=== PATIENT | female | born 1995 | race Two or more races ===

== ENCOUNTER 2022-09-20 11:18 | Outpatient (CLI) | payer OTHER, SELFPAY ==
--- NOTE | 2022-09-20 11:27 | US_ITS ---
STUDY: ULTRASOUND OF THE FEMALE PELVIS - COMPLETE REASON FOR EXAM: Female, 27 years old. Intermittent pelvic pain. IUD placed 3-4 years ago. LMP: Unknown. TECHNIQUE: 3 TECHNICAL QUALITY: Adequate. COMPARISON: None. FINDINGS: The uterus is anteverted and is in a midline position. The uterus measures 6.9 x 4.6 x 4.0 cm. Normal uterine cervix. The endometrium measures 2.7 mm in thickness, and is hyperechoic. There is no demonstrated endometrial mass. There is no demonstrated myometrial mass. I.U.D. -there is a IUD in satisfactory position within the fundal endometrial lumen. The right ovary is visualized. The right ovary measures 4.1 x 2.6 x 2.2 cm. There multiple follicles with a dominant 2.5 x 1.5 x 1.5 cm involuting cyst. There is no visualized right adnexal mass or complex lesion. There is normal arterial and normal venous vascularity. The left ovary is visualized. The left ovary measures 3.7 x 2.2 x 1.9 cm. 3 There is no visualized left adnexal mass or complex lesion. There is normal arterial and normal venous vascularity. There is mild to moderate fluid in the cul-de-sac. The pre void volume of the bladder was 321 ml. The urinary bladder appears grossly normal. Polycystic ovary disease: No. US/Pelvic (Non ) IMPRESSION: 1. Normal uterus with IUD in satisfactory position. 2. Involuting cyst in the right ovary. Left ovary is normal. 3. Mild to moderate free fluid in the pelvis, thought to be physiologic Electronically Signed: Mason Garcia DO at 16:54 EST ,
== END 2022-09-20 23:59 | disposition home or self-care (01) ==
LOC: US 11:24
DX: R10.2 Pelvic and perineal pain (principal)
CPT/HCPCS: 76830; 76856

== ENCOUNTER → 2023-02-22 | Outpatient (CLI) | payer OTHER, SELFPAY ==
[2023-02-22 16:28] LABS: Absolute Neutrophil Count 4.6 X10^3/uL (2.0-7.7); Basophil# 0.04 X10^3/uL; Basophil% 0.5 % (0-1); Eosinophil# 0.03 X10^3/uL; Eosinophils% 0.4 % (0-5); Hematocrit 40.8 % (37-47); Hemoglobin 13.7 g/dL (12.0-15.0); Lymphocyte % 31.1 % (19-41); Mean Corp Hgb Conc 33.6 g/dL (32-36); Mean Corpuscular Hgb 29.2 pg (27.0-32.0); Monocyte# 0.41 X10^3/uL; Monocyte% 5.5 % (0-10); NRBC Flagged by Analyzer 0 % (0-5); Neutrophil % 62.2 % (47-70); Platelet Count 227 K/mm3 (150-450); RBC Distribution Width CV 12.8 % (11.6-14.6); RBC Distribution Width SD 40.6 fl (35.1-43.9); Red Blood Count 4.69 M/mm3 (4.2-5.4); White Blood Count 7.4 K/mm3 (4.4-11.0)
[2023-02-22 17:29] LABS: ALB/GLOB Ratio 1.2 RATIO (0.9-2.4); AST(SGOT) 17 U/L (15-37); Alanine Aminotransfer ALT/SGPT 23 U/L (13-56); Alkaline Phosphatase 56 U/L (45-117); Anion Gap 4 (5-15); BUN 16 mg/dL (7-18); BUN/Creat Ratio 15.8 RATIO (10-20); Chloride 104 mmol/L (98-107); Creatinine, Serum 1.01 mg/dL (0.55-1.02); EST Glomerular Filtration Rate 71 mL/min (>60); Est Glom Filt Rate - Afr Amer 85 mL/min (>60); Ferritin 118 ng/mL (8-252); Globulin 3.4 g/dL (2.2-4.2); Glucose 87 mg/dL (74-106); Iron 66 ug/dL (50-170); Iron Binding Capacity,Total 304 ug/dL (250-450); PERCENT IRON SATURATION 21.7 % (15.0-55.0); Potassium 3.9 mmol/L (3.5-5.1); Protein, Total 7.4 g/dL (6.4-8.2); Sodium Level 135 mmol/L (136-145); T4 Free Direct 1.02 ng/dL (0.76-1.46); Thyroid Stim Hormone (TSH) 1.17 uIU/mL (0.358-3.74)
[2023-02-22 17:56] LABS: Vitamin D,25 Hydroxy 55.6 ng/mL
[2023-02-25 07:08] LABS: Anti-Thyroglobulin AB < 1.0 IU/mL (0.0-0.9); Thyroglobulin, Serum Qt. 9.8 ng/mL (1.5-38.5); Thyroid Peroxidase AB < 9 IU/mL (0-34); Thyroid Stim Immunoglob <0.10 IU/L (0.00-0.55)
== END | disposition home or self-care (01) ==
LOC: MFPLAB 15:03
PROVIDERS: PCP Family Medicine; Visit Provider Family Medicine
DX: E55.9 Vitamin D deficiency, unspecified (principal); E01.1 Iodine-deficiency related multinodular (endemic) goiter; E61.1 Iron deficiency
CPT/HCPCS: 36415; 80053; 82306; 82728; 83540; 83550; 83735; 84432; 84439; 84443; 84445; 85025; 86376; 86800

== ENCOUNTER → 2023-03-06 | Outpatient (CLI) | payer OTHER, SELFPAY ==
--- NOTE | 2023-03-06 16:57 | US_ITS ---
INDICATION: THYROMEGALY EXAMINATION: Ultrasound US Thyroid (eg thyroid, parathyroid, parotid) TECHNIQUE: Domingo scale and color doppler imaging was performed of the thyroid gland. COMPARISON: None. FINDINGS: RIGHT THYROID LOBE: 4.7 x 1.3 x 1.5 cm (4.6 ml). Homogeneous echotexture with normal vascularity. [Multiple small benign colloid cysts in the right inferior thyroid to 2 mm in size. LEFT THYROID LOBE: 4.3 x 1.4 x 1.2 cm (3.7 ml). Homogeneous echotexture with normal vascularity. [Inferior thyroid 0.4 x 0.2 x 0.3 cm completely cystic anechoic wider than tall smoothly marginated cyst with inspissated colloid, TI-RAD 1.. ISTHMUS: 0.3 cm. No thyroid nodules are present. US/Thyroid IMPRESSION: Prominent thyroid with small bilateral colloid cysts Electronically Signed: Tiago Dubon MD at 4:36 EDT ,
== END | disposition home or self-care (01) ==
LOC: US 16:56
PROVIDERS: PCP Family Medicine; Referring Provider Family Medicine; Visit Provider Family Medicine
DX: E01.0 Iodine-deficiency related diffuse (endemic) goiter (principal)
CPT/HCPCS: 76536

== ENCOUNTER 2024-04-15 00:22 | Emergency (ER) | payer OTHER, SELFPAY ==
[2024-04-15 00:22] VITALS: BP 131/87; PULSE 69; RESP 18; TEMP 36.6; O2SAT 98; BMI 30.8
--- NOTE | 2024-04-15 00:31 | CT_ITS ---
EXAM: CT ABDOMEN AND PELVIS WITHOUT INTRAVENOUS CONTRAST CLINICAL INDICATION: abdominal pain TECHNIQUE: Helically acquired images were obtained of the abdomen and pelvis without intravenous contrast. This CT exam was performed using one or more of the following dose reduction techniques: automated exposure control, adjustment of the mA and/or kV according to patient size, and/or use of iterative reconstruction technique. RADIATION DOSE: CTDIvol = 6.95 mGy, DLP = 341.91 mGy-cm COMPARISON: No relevant prior studies available. FINDINGS: LOWER THORAX: Unremarkable. Lung bases are clear. No cardiomegaly. No significant pericardial effusion. ABDOMEN: LIVER: Unremarkable. Homogeneous. GALLBLADDER AND BILE DUCTS: Unremarkable. No calcified gallstones. No gallbladder distention or wall edema. No intra- or extrahepatic biliary ductal dilation. PANCREAS: Unremarkable. No focal cystic mass. SPLEEN: Unremarkable. Normal size without focal cystic or solid mass. ADRENALS: Unremarkable. No nodules. KIDNEYS AND URETERS: No ureteral stone or renal obstruction. Normal renal size and position. STOMACH AND BOWEL: Unremarkable. No stomach or bowel distention. No focal inflammatory change. PELVIS: APPENDIX: The appendix is normal. BLADDER: Mild wall thickening of the bladder with faint adjacent stranding changes. REPRODUCTIVE: Unremarkable as visualized. No mass. ABDOMEN and PELVIS: INTRAPERITONEAL SPACE: Tiny amount of free fluid in the pelvis. No free air. BONES/JOINTS: Unremarkable. No suspicious lytic or blastic abnormality. SOFT TISSUES: Unremarkable. No discrete abdominal or pelvic wall hernia. VASCULATURE: Unremarkable. Abdominal aorta is non-dilated. LYMPH NODES: Unremarkable. No enlarged lymph nodes. CT/Abdomen/Pelvis without Cont IMPRESSION: Mild wall thickening of the bladder with faint adjacent stranding changes. Findings may indicate cystitis. Electronically Signed: Anjel Sommer MD at 1:48 EDT ,
--- NOTE | 2024-04-15 00:31 | ED.VIS.GI ---
HPI HPI - GI History of Present Illness Chief Complaint: Flank Pain Detail of Chief Complaint: Abdominal pain Informant: patient Narrative Narrative: Patient presents with abdominal pain initially started 2 days ago. Patient states that she had some lower abdomen pain that resolved after about 30 minutes. Yesterday throughout the day she had some soreness in her abdomen. This evening more discomfort. She complains of some pain in her mid back. She had nausea and decreased appetite today. She denies fevers. She denies diarrhea. Last bowel movement was about 4 to 5 hours ago. Last menstrual period she thinks was 2 to 3 weeks ago. No prior abdominal surgeries. [facility] Medical History (Updated 04/15/24 @ 02:[address] Vivian Salazar DO) ADHD Hx LEEP (loop electrosurgical excision procedure), cervix, Home Medications ?Medication ?Instructions ?Recorded ?Last Taken ?Type amoxicillin 875 mg tablet 875 mg PO BID #20 tabs 09/17/20 Unknown Rx ascorbate calcium (vitamin C) 500 500 mg PO DAILY 09/17/20 Unknown History mg tablet cholecalciferol (vitamin D3) 125 125 mcg PO DAILY 09/17/20 Unknown History mcg (5,000 unit) capsule fluconazole 150 mg tablet 150 mg PO Q3D 2 doses #2 tabs 09/17/20 Unknown Rx lactobacillus combination no.4 3 3,000 mmu cells PO DAILY 09/17/20 Unknown History billion cell capsule (Probiotic) erythromycin 5 mg/gram (0.5 %) eye 0.5 inch ophthalmic (eye) TID pink 09/24/20 Unknown Rx ointment eye #3.5 grams benzonatate 200 mg capsule 200 mg PO TID PRN cough #20 caps 07/24/23 Unknown Rx methylprednisolone 4 mg tablets in See Rx Instructions PO PER PKG DIR 07/24/23 Unknown Rx a dose pack (Medrol (Jf)) #21 tabs cephalexin 500 mg capsule 500 mg PO Q6 #28 CAPSULES 04/15/24 Unknown Rx Allergy/AdvReac Type Severity Reaction Status Date / Time No Known Allergies Allergy Verified 04/15/24 00:26 Family History Other Adopted Surgical History S/P MCL repair History of repair of ACL Social History Smoking Status: Current every day smoker tobacco type: e-cigarettes alcohol intake: current details: once a week ROS ROS ED Review of Systems ROS Unobtainable: other Constitutional Constitutional ED: Reports lethargy; Denies chills, fever(s), sweats or weight loss Eyes Eyes: Denies blurry vision, change in vision or diplopia ENT ENT ED: Denies rhinorrhea or sore throat Cardiovascular Cardiovascular: Denies chest pain, orthopnea or racing heartbeat Respiratory/Chest Respiratory/Chest: Denies cough, dyspnea, dyspnea on exertion, orthopnea or sputum Gastrointestinal Gastrointestinal: Reports abdominal pain and nausea; Denies diarrhea or vomiting Genitourinary Genitourinary ED: Denies dysuria, hematuria or urinary frequency Musculoskeletal Musculoskeletal: Denies arthralgias, back pain, myalgias or neck pain Integumentary Denies abscess, Abrasions or rash Neurologic Neurologic: Denies headache(s) or weakness Psychiatric Psychiatric: Denies anxiety, depression or suicidal thoughts Endocrine Endocrinology: Denies polydipsia, polyphagia or polyuria Hematologic/Lymphatic Hematologic/Lymphatic: Denies easy bleeding, easy bruising or lymphadenopathy Allergic/Immunologic Allergic/Immunologic ED: Denies mouth swelling, tongue swelling or urticaria EXAM Physical Exam Const Vital Signs: 04/15/24 00:22 04/15/24 01:26 04/15/24 02:02 Temperature 97.8 F 97.1 F L Temperature Source Temporal Temporal Pulse Rate 69 69 69 Respiratory Rate 18 16 16 Blood Pressure 131/87 H 115/65 115/65 Blood Pressure Mean 101 81 81 Pulse Ox 98 99 98 Oxygen Delivery Method Room Air Room Air Room Air Positive well nourished and well developed General Appearance ED: well developed and NAD HEENT Reports TM's clear and moist mucous membranes normocephalic and atraumatic; Negative for trauma or tenderness Tympanic Membrane ED: Yes TM's clear Eyes PERRL and EOMs intact bilaterally General Eye ED: Negative for pale conjunctiva or scleral icterus Neck no lymphadenopathy, supple and no JVD General: Negative for tenderness Chest Wall inspection of chest normal and palpation of chest normal Chest: Negative for tenderness Resp normal respiratory effort and clear to auscultation bilaterally Effort and Inspection: Negative for respiratory distress or pain with movement Auscultation: Negative for rhonchi, wheezes or diminished lung sounds Cardio regular rate, regular rhythm, S1 normal heart sound, S2 normal heart sound and no murmurs Peripheral Pulses: pulses 2+ throughout GI normal to inspection, nondistended, normoactive bowel sounds, soft to palpation, non-tender and no masses GI Narrative: Mild tenderness over the right lower quadrant and suprapubic region as well as the left lower quadrant. There is no rebound, rigidity, or pineal signs. No mass palpated. Back/Spine no CVA tenderness and no thoracic nor lumbar tenderness Extremity normal to inspection General Extremety ED: Negative for edema General Extremity: Negative for edema Neuro oriented x3, CN's II-XII intact bilaterally, no sensory deficits noted and gait normal Sensorium / Orientation: awake, alert, oriented to person, oriented to place and oriented to time Motor Exam: strength 5/5 throughout and strength abnormal Psych mental status grossly normal Skin no rashes or lesions noted and no wounds MDM MDM MDM Narrative Medical decision making narrative: Patient presents with lower abdomen pain and some cloudy urine. She has had nausea and loss of appetite. In the differential would be UTI versus appendicitis versus versus diverticulitis or other acute process. IV line established. CBC with differential white count of 9.9 with hemoglobin 14.5 and platelet count of 232. Chemistries unremarkable. LFTs were normal. Urinalysis was positive for infection. She was started on Rocephin [address] scan of the abdomen pelvis obtained to rule out things such as kidney stone or acute appendicitis. CT showed thickened bladder wall consistent with cystitis otherwise normal appendix and no other acute process. Patient will be discharged home with prescription for Keflex. Advised to follow-up with primary care physician within next 3 to 5 days. Lab Data Labs: Laboratory Results - last 24 hr 04/15/24 00:42 WBC 9.9 RBC 5.00 Hgb 14.5 Hct 43.3 MCV 86.6 MCH 29.0 MCHC 33.5 RDW Std Deviation 39.9 RDW Coeff of Kathi 12.6 Plt Count 232 MPV 9.9 Immature Gran % (Auto) 0.200 Neut % (Auto) 63.7 Lymph % (Auto) 29.7 D[place]y % (Auto) 5.5 Eos % (Auto) 0.4 Baso % (Auto) 0.5 Absolute Neuts (auto) 6.3 Absolute Lymphs (auto) 2.94 Nucleated RBC % 0 Sodium 139 Potassium 3.6 Chloride 106 Carbon Dioxide 28.0 Anion Gap 5 BUN 10 Creatinine 1.08 H Estim Creat Clear Calc 68.51 Est GFR (MDRD) Af Amer 78 Est GFR (MDRD) Non-Af 65 BUN/Creatinine Ratio 9.3 L Glucose 99 Calcium 9.1 Total Bilirubin 0.40 AST 20 ALT 21 Alkaline Phosphatase 64 Total Protein 7.6 Albumin 4.1 Globulin 3.5 Albumin/Globulin Ratio 1.2 Serum , Qual NEGATIVE Urine Color Yellow Urine Clarity Sl. Cloudy Urine pH 7.0 Ur Specific Lueders 1.010 Urine Protein 100 H Urine Glucose (UA) Normal Urine Ketones Negative Urine Occult Blood 250 H Urine Nitrite Negative Urine Bilirubin Negative Urine Urobilinogen Normal Ur Leukocyte Esterase 500 H Urine RBC 10-25 SEEN Urine WBC 50-100 SEEN Ur Squamous Epith Cells 0-5 SEEN Urine Bacteria RARE Urine Mucus 0 SEEN Radiography Diagnostic Testing: Clinical Impression(s) from Imaging Studies Abdomen/Pelvis CT 04/15/24 00:31 IMPRESSION: Mild wall thickening of the bladder with faint adjacent stranding changes. Findings may indicate cystitis. Electronically Signed: Anjel Sommer MD at 1:48 EDT , Discharge Plan Triage Chief Complaint: Flank Pain Other Complaint: Complaint ED Provider: Vivian Salazar Dx/Rx/DC Orders Clinical Impression: UTI (urinary tract infection) Instructions: ED Cystitis Female Adult Prescriptions: New cephalexin 500 mg capsule 500 mg PO Q6 Qty: 28 0RF No Action methylprednisolone [Medrol (Jf)] 4 mg tablets,dose pack See Rx Instructions PO PER PKG DIR Qty: 21 0RF Rx Instructions: PO PER PKG DIR benzonatate 200 mg capsule 200 mg PO TID PRN (Reason: cough) Qty: 20 0RF cholecalciferol (vitamin D3) 125 mcg (5,000 unit) capsule 125 mcg PO DAILY ascorbate calcium (vitamin C) 500 mg tablet 500 mg PO DAILY Probiotic 3 billion cell capsule 3,000 mmu cells PO DAILY Rx Instructions: administer with a meal amoxicillin 875 mg tablet 875 mg PO BID Qty: 20 0RF fluconazole 150 mg tablet 150 mg PO Q3D 0 Days Qty: 2 2RF Rx Instructions: may repeat second dose 72 hrs after first dose if symptoms persist erythromycin 5 mg/gram (0.5 %) ointment 0.5 inch OPHTHALMIC TID Qty: 3.5 0RF Rx Instructions: apply her R eye Primary Care Provider: Clinton Arceo Referrals: Clinton Arceo MD [Primary Care Provider] - 3-5 Days Print Language: Danish Disposition Disposition: Home, Self Care
[2024-04-15] MEDS: 0.9% Normal Saline (1000mL) 1,000 ML 125 ML IV (00:40)
[2024-04-15] MEDS: Ketorolac 15 MG/ML Vial IV (00:41)
[2024-04-15 00:48] LABS: Mucous, Urine 0 SEEN /hpf (<or=2+)
[2024-04-15 00:59] LABS: Color, Urine Yellow (Yellow); Glucose, Dipstick Normal (Normal); Ketone-Dipstick Negative (Negative); Leukocyte Esterase-Dipstick 500 /ul (Negative); Nitrite-Dipstick Negative (Negative); Occult Blood-Urine 250 /ul (Negative); Protein-Dipstick 100 mg/dl (Negative); Urine Bilirubin Dipstick Negative (Negative); Urine Clarity Sl. Cloudy (Clear); Urine Urobilinogen Normal (Normal)
[2024-04-15 01:02] LABS: Internal QC Validated? YES +Cl - CLEAR BKGD; Pregnancy, Serum, hCG Quali. NEGATIVE Negative
[2024-04-15 01:04] LABS: Absolute Lymphocyte Count 2.94 X10^3/uL (0.83-4.51); Absolute Neutrophil Count 6.3 X10^3/uL (2.0-7.7); Basophil# 0.05 X10^3/uL; Basophil% 0.5 % (0-1); Eosinophil# 0.04 X10^3/uL; Eosinophils% 0.4 % (0-5); Hematocrit 43.3 % (37-47); Hemoglobin 14.5 g/dL (12.0-15.0); Lymphocyte # 2.94 X10^3/ul (0.83-4.51); Lymphocyte % 29.7 % (19-41); Mean Corp Hgb Conc 33.5 g/dL (32-36); Mean Corpuscular Volume 86.6 fL (81-99); Mean Platelet Vol. 9.9 fl (6.2-12.0); Monocyte# 0.55 X10^3/uL; Monocyte% 5.5 % (0-10); NRBC Flagged by Analyzer 0 % (0-5); Neutrophil # 6.31 X10^3/uL (2.7-7.7); Neutrophil % 63.7 % (47-70); Platelet Count 232 K/mm3 (150-450); RBC Distribution Width CV 12.6 % (11.6-14.6); RBC Distribution Width SD 39.9 fl (35.1-43.9); White Blood Count 9.9 K/mm3 (4.4-11.0)
[2024-04-15 01:08] LABS: Bacteria RARE /hpf (None Seen); Red Blood Cells-Urine 10-25 SEEN /hpf (0-5); Squamous Epithelial Cells - UA 0-5 SEEN /hpf (5-10); White Blood Cells 50-100 SEEN /hpf (0-5)
[2024-04-15 01:09] LABS: ALB/GLOB Ratio 1.2 RATIO (0.9-2.4); AST(SGOT) 20 U/L (15-37); Alanine Aminotransfer ALT/SGPT 21 U/L (13-56); Albumin, Serum 4.1 g/dL (3.2-5.0); Alkaline Phosphatase 64 U/L (45-117); Anion Gap 5 (5-15); BUN 10 mg/dL (7-18); BUN/Creat Ratio 9.3 RATIO (10-20); Calcium,Total 9.1 mg/dL (8.5-10.1); Chloride 106 mmol/L (98-107); Creatinine, Serum 1.08 mg/dL (0.55-1.02); EST Glomerular Filtration Rate 65 mL/min (>60); Est Glom Filt Rate - Afr Amer 78 mL/min (>60); Estimated Creatinine Clearance 68.51 ml/min; Globulin 3.5 g/dL (2.2-4.2); Glucose 99 mg/dL (74-106); Potassium 3.6 mmol/L (3.5-5.1); Protein, Total 7.6 g/dL (6.4-8.2); Sodium Level 139 mmol/L (136-145)
[2024-04-15 01:26] VITALS: BP 115/65; PULSE 69; RESP 16; TEMP 36.2; O2SAT 99
[2024-04-15] MEDS: Ceftriaxone 1 GM/50 ML BAG IV (02:00)
[2024-04-15 02:02] VITALS: BP 115/65; PULSE 69; RESP 16; O2SAT 98
[2024-04-15 02:16] VITALS: BP 115/65; PULSE 62; RESP 16; TEMP 36.2; O2SAT 95
== END 2024-04-15 02:25 | disposition home or self-care (01) ==
PROVIDERS: Emergency Provider Emergency Medicine; PCP Family Medicine; Visit Provider Emergency Medicine
DX: N39.0 Urinary tract infection, site not specified (principal); R10.9 Unspecified abdominal pain; F17.290 Nicotine dependence, other tobacco product, uncomplicated
CPT/HCPCS: 74176; 80053; 81001; 84703; 85025; 87086; 87088; 96361; 96365; 96375; 99284; J7030; J7050; A4216

== ENCOUNTER → 2024-05-30 | Outpatient (CLI) | payer OTHER, SELFPAY ==
[2024-05-30 18:32] LABS: Anion Gap 6 (5-15); BUN 13 mg/dL (7-18); BUN/Creat Ratio 11.7 RATIO (10-20); Calcium,Total 9.2 mg/dL (8.5-10.1); Chloride 107 mmol/L (98-107); Creatinine, Serum 1.11 mg/dL (0.55-1.02); EST Glomerular Filtration Rate 63 mL/min (>60); Est Glom Filt Rate - Afr Amer 76 mL/min (>60); Glucose 74 mg/dL (74-106); Potassium 3.8 mmol/L (3.5-5.1); Sodium Level 138 mmol/L (136-145)
== END | disposition home or self-care (01) ==
LOC: MTLAB 15:34
PROVIDERS: PCP Family Medicine
DX: R35.89 Other polyuria (principal)
CPT/HCPCS: 36415; 80048